=== PATIENT | male | born 1975 | race Caucasian/White ===

== ENCOUNTER 2020-10-16 12:20 | Emergency (ER) | payer OTHER ==
[~2020-10-16] VITALS: Ht 182.9 cm; Wt 90.9 kg
[~2020-10-16 12:20] MED LIST: ADVIL200 MG PO; IMITREX25 MG PO; PROTONIX40 MG PO; VICODIN 5/5001 UDTAB PO
[2020-10-16 12:57] LABS: BASO # 0.1 (0.0-0.2); BASO % 0.7 % (0.0-2.0); EOS # 0.1 (0.0-0.7); GRAN # 4.8 (1.4-6.5); GRAN % 67.6 % (42.2-75.2); HEMATOCRIT 44.2 % (42.0-52.0); LYMPH # 1.7 (1.2-3.4); LYMPH % 24.1 % (20.0-51.0); MEAN CELL VOLUME 85 fl (80.0-100.0); MEAN CORPUSCULAR HEMOGLOBIN 29 pg (27.0-31.0); MEAN CORPUSCULAR HGB CONC 34 g/dl (33.0-37.0); MEAN PLATELET VOLUME 10.1 fl (7.4-10.4); MONO # 0.4 (0.1-0.6); MONO % 5.2 % (1.7-9.3); PLATELET COUNT 211 K/mm3 (130-400); RED BLOOD COUNT 5.22 M/mm3 (4.20-5.60); REDCELL DISTRIBUTION WIDTH-CV 12.9 % (11.5-14.5)
[2020-10-16 13:00] LABS: INR 1.1 (0.8-3.0); PROTHROMBIN TIME 12.4 SECONDS (9.7-12.8)
[2020-10-16 13:02] LABS: PARTIAL THROMBOPLASTIN TIME 31.9 SECONDS (26.0-37.0)
[2020-10-16 13:08] LABS: ALANINE AMINOTRANSFERASE 17 U/L (4-49); ALBUMIN 3.7 gm/dL (3.5-5.0); ALKALINE PHOSPHATASE 66 U/L (50-136); ANION GAP 6 mmol/L (7-16); AST,SGOT 19 U/L (15-37); BILIRUBIN,TOTAL 0.7 mg/dL (0.0-1.0); BLOOD UREA NITROGEN 10 mg/dL (9-20); CALCIUM 8.3 mg/dL (8.4-10.2); CARBON DIOXIDE 28 mmol/L (22-30); CHLORIDE 105 mmol/L (98-107); CREATININE, serum 0.79 (0.66-1.25); GLUCOSE 95 mg/dL (74-106); POTASSIUM 4.3 mmol/L (3.4-5.0); SODIUM 138 mmol/L (137-145); TOTAL PROTEIN 6.4 gm/dL (6.4-8.2)
[2020-10-16 13:26] LABS: TROPONIN-I < 0.012 ng/mL (0.000-0.035)
[2020-10-16 13:49] VITALS: BP 101/78; PULSE 60; TEMP 97.7
== END 2020-10-16 13:57 | disposition home or self-care (01) ==
LOC: COL.ER 12:20
PROVIDERS: Emergency Medicine
DX: R55 Syncope and collapse (principal)

== ENCOUNTER 2021-06-29 13:30 | Outpatient (RCR) | payer OTHER | END 2021-07-20 | disposition home or self-care (01) | LOC: WSOT | DX: S61.213A Laceration without foreign body of left middle finger without damage to nail, initial encounter (principal); S61.215A Laceration without foreign body of left ring finger without damage to nail, initial encounter; S61.217A Laceration without foreign body of left little finger without damage to nail, initial encounter; W31.2XXA Contact with powered woodworking and forming machines, initial encounter ==

== ENCOUNTER 2021-07-27 14:45 | Outpatient (RCR) | payer OTHER | END 2021-10-09 | disposition home or self-care (01) | LOC: WSOT | DX: S69.92XA Unspecified injury of left wrist, hand and finger(s), initial encounter (principal); W31.2XXA Contact with powered woodworking and forming machines, initial encounter ==

== ENCOUNTER 2023-09-16 10:34 | Day surgery (SDC) | payer OTHER ==
[2023-09-16] VITALS (10 sets, daily range): BP systolic 96–124; BP diastolic 71–97; PULSE 75–94; TEMP 98.6
[~2023-09-16] VITALS: Ht 182.9 cm; Wt 96.6 kg
[2023-09-16] MEDS ORDERED: TRULANCE3 MG PO (11:12)
[2023-09-16] MEDS ORDERED: NEURONTIN300 MG/CAP PO (11:13)
[2023-09-16] MEDS ORDERED: ASPIRIN E.C. 8181 MG PO (11:13)
[2023-09-16] MEDS ORDERED: FIORICET 325 MG1 TA1 PO (11:14)
[2023-09-16] MEDS ORDERED: TOPAMAX 25MG25 M1 PO (11:14)
[2023-09-16] MEDS ORDERED: LIPITOR 80MG80 MG PO (11:15)
[2023-09-16] MEDS ORDERED: PROTONIX 40MG T40 MG PO (11:16)
[2023-09-16 11:39] LABS: HEMATOCRIT 44.1 % (42.0-52.0); HEMOGLOBIN 14.7 g/dl (13.5-18.0); MEAN CELL VOLUME 88 fl (80.0-100.0); MEAN CORPUSCULAR HEMOGLOBIN 29 pg (27-31); MEAN CORPUSCULAR HGB CONC 33 g/dl (33.0-37.0); MEAN PLATELET VOLUME 10.1 fl (7.4-10.4); PLATELET COUNT 214 K/mm3 (130-400); RED BLOOD COUNT 5.02 M/mm3 (4.20-5.60); REDCELL DISTRIBUTION WIDTH-CV 13.1 % (11.5-14.5)
[2023-09-16 11:46] LABS: INR 1.1 (0.8-3.0)
[2023-09-16 11:48] LABS: PARTIAL THROMBOPLASTIN TIME 35.7 SECONDS (26.0-37.0)
[2023-09-16 12:01] LABS: CALCIUM 8.9 mg/dL (8.4-10.2); CREATININE, serum 0.8 mg/dL (0.72-1.25); POTASSIUM 3.6 mmol/L (3.5-4.5)
--- NOTE | 2023-09-16 13:01 | NUR ---
Bedside report completed with Lopez PEREZ. Insertion site reviewed, 0.45 SODIUM Chloride infusing at 100 ml/hr via dial flow. First set of post op vitals reviewed, call light within reach. Lopez PEREZ denies questions/concerns at this time.
--- NOTE | 2023-09-16 16:00 | NUR ---
Air was removed from TR band in 2 ml increments with no bleeding or complication. Rt radial puncture site dressed with folded 2x2 and bandaid. IV DC'd, site wrapped with coban. Pt is steady on feet. Has ambulate to restroom x2. He ate meal tray. DC instructions reviewed and signed, pt denies questions. Awaiting arrival of his daughter for ride home.
--- NOTE | 2023-09-16 16:45 | NUR ---
Pt assisted out by wheelchair to daughter's car with belongings.
== END 2023-09-16 16:45 | disposition home or self-care (01) ==
LOC: COL.CAR 10:34
PROVIDERS: Internal Medicine Interventional Cardiology
DX: R07.9 Chest pain, unspecified (principal); R94.39 Abnormal result of other cardiovascular function study; F17.210 Nicotine dependence, cigarettes, uncomplicated
CPT/HCPCS: C1769; J1644; J2250; J3010; Q9967